=== PATIENT | female | born 1925 | race Caucasian/White ===

== ENCOUNTER 2016-11-09 00:02 | Emergency (ER) | payer OTHER ==
[2016-11-09] MEDS ORDERED: ASPIRIN PO STA (00:09)
[2016-11-09 00:17] LABS: MANUAL DIFF NEEDED? NO
[2016-11-09 00:27] LABS: BASO% 0.6 % (0.0-0.8); EOS# 0.25 X1000 (0.0-0.7); EOS% 3.8 % (0.0-10.0); HEMATOCRIT 32.9 % (37.0-47.0); HEMOGLOBIN 11.3 g/dL (12.0-16.0); IMM GRAN# 0.02 X1000 (0.0-0.04); IMM GRAN% 0.3 % (0.0-0.5); LYMPH# 1.52 X1000 (1.2-3.4); LYMPH% 23.3 % (20.5-51.1); MCH 31.8 PG (27-31); MCHC 34.3 g/dL (33-37); MCV 92.7 FL (81-99); MONO# 0.86 X1000 (0.11-0.59); MONO% 13.2 % (1.7-9.3); MPV 10.2 FL (7.4-10.4); NEUT% 58.8 % (42.2-75.2); PLT 204 X1000 (130-400); RBC 3.55 XMIL (4.2-5.4)
--- NOTE | 2016-11-09 00:29 | PROVIDER DOCUMENTATION ---
HPI-Chest Pain - General Source: patient - History of Present Illness-CP Location: reports: substernal Chest Pain Radiation: reports: no radiation Quality of Pain: reports: dull Onset/Duration: 1-3 hours ago Timing: gone now Associated Symptoms: denies: dizziness Nitro Today/Relief: no nitro taken today Aspirin Treatment Today: no aspirin today <Doug Prajapati - Last Filed: 11/09/16 00:44> <Javier Rosa - Last Filed: 11/09/16 03:17> - General Chief Complaint: Chest Pain Stated Complaint: chest pain Time Seen by Provider: 11/09/16 00:35 Allergies/Adverse Reactions: Patient Allergies Allergy/AdvReac Type Severity Reaction Status Date / Time No Known Allergies Allergy Verified 11/09/16 00:08 Home Medications: Home Meds Unobtainable 11/09/16 - History of Present Illness-CP Nature of Presenting Problem: 89 yo F presents to the ER with complaint of 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 Pt denies being lightheaded and dizzy. Pt states the chest pain has subsided and states she just couldn't get enough air. (Doug Prajapati) Review of Systems - Adult - REVIEW OF SYSTEMS - ADULT Constitutional: denies: chills, fever Eyes: reports: no symptoms reported Ears, Nose, Mouth & Throat: reports: no symptoms reported Cardiovascular: reports: chest pain. denies: palpitations Respiratory: denies: cough, shortness of breath Gastrointestinal: denies: abdominal pain, nausea, vomiting Genitourinary: reports: no symptoms reported Musculoskeletal: denies: back pain, neck pain Integumentary: reports: no symptoms reported Neurological: reports: no symptoms reported Psychiatric: reports: no symptoms reported Endocrine: reports: no symptoms reported Hematologic/Lymphatic: reports: no symptoms reported Allergic/Immunologic: reports: no symptoms reported All Other Systems: Reviewed and Negative <Doug Prajapati - Last Filed: 11/09/16 00:44> Past History - Adult - PAST MEDICAL HISTORY-ADULT Review of Records: reports: Old Records Reviewed, Nursing Assessment Review, Medications Reviewed - IMMUNIZATION STATUS Childhood Immunizations: See Nurse Assessment Flu Vaccine: See Nurse Assessment <Doug Prajapati - Last Filed: 11/09/16 00:44> Physical Exam-General - PHYSICAL EXAM-ADULT Initial Vital Signs Reviewed: Yes - CONSTITUTIONAL General Appearance: appears well, alert - EYES Eyes: PERRL/EOMI, pink conjunctivae - HEAD, EARS, NOSE, MOUTH & THROAT HENMT: normocephalic/atraumatic, moist mucous membranes - NECK Neck: non-tender, full range of motion - RESPIRATORY Respiratory: chest non-tender, lungs clear - CARDIOVASCULAR Cardiovascular: normal peripheral pulses, regular rate, rhythm - GASTROINTESTINAL (ABDOMEN) Abdominal Exam: normal bowel sounds, non tender - MUSCULOSKELETAL Extremity: normal range of motion, non-tender <Doug Prajapati - Last Filed: 11/09/16 00:44> Progress - EKG 1 Time of EKG reading by physician:: 00:13 EKG Read and Signed by:: Javier Rosa EKG Interpretation (*Must complete 3 of following elements*): Abnormal Rate: 47 Rhythm: sinus bradycardia [place]: normal QRS: poor R wave progression Prior EKG Comparison: no prior EKG Comments: abnormal EKG - XRAY 1 XRAY Study: Chest Impression: Normal XRAY Interpretation: normal <Doug Prajapati - Last Filed: 11/09/16 00:44> - REASSESSMENT Reassessment #1 Time Reassessed: 03:16 (pain remained symptom free during her ED stay) Status: improving <Javier Rosa - Last Filed: 11/09/16 03:17> - PLAN OF CARE/RESULTS Progress/Plan/Lab Results: Laboratory Tests 11/09/16 11/09/16 11/09/16 00:01 00:01 00:01 WBC RBC Hgb Hct MCV MCH MCHC RDW Std Deviation Plt Count MPV Immature Gran % (Auto) Neut % (Auto) Lymph % (Auto) Forrest % (Auto) Eos % (Auto) Baso % (Auto) Immature Gran # (Auto) Neut # (Auto) Lymph # (Auto) Forrest # (Auto) Eos # (Auto) Baso # (Auto) PT INR APTT (Factor Assay) D-Dimer Sodium 134 L Potassium 4.4 Chloride 100 Carbon Dioxide 26 Anion Gap 8 BUN 23 H Creatinine 0.8 Estimated GFR/1.73 m2 > 60 BUN/Creatinine Ratio 29 Glucose 89 Calculated Osmolality 271 Calcium 8.8 Magnesium 2.3 Total Bilirubin 0.20 AST 25 ALT 14 Alkaline Phosphatase 75 Creatine Kinase 78 Troponin T < 0.010 Zmg-E-Ksajzsnlyky Pept 341 Total Protein 6.8 Albumin 3.8 Globulin 3.0 Albumin/Globulin Ratio 1.0 11/09/16 11/09/16 00:01 00:01 WBC 6.51 RBC 3.55 L Hgb 11.3 L Hct 32.9 L MCV 92.7 MCH 31.8 H MCHC 34.3 RDW Std Deviation 12.8 Plt Count 204 MPV 10.2 Immature Gran % (Auto) 0.3 Neut % (Auto) 58.8 Lymph % (Auto) 23.3 Forrest % (Auto) 13.2 H Eos % (Auto) 3.8 Baso % (Auto) 0.6 Immature Gran # (Auto) 0.02 Neut # (Auto) 3.82 Lymph # (Auto) 1.52 Forrest # (Auto) 0.86 H Eos # (Auto) 0.25 Baso # (Auto) 0.04 PT 13.5 INR 1.00 APTT (Factor Assay) 27.3 D-Dimer 0.26 Sodium Potassium Chloride Carbon Dioxide Anion Gap BUN Creatinine Estimated GFR/1.73 m2 BUN/Creatinine Ratio Glucose Calculated Osmolality Calcium Magnesium Total Bilirubin AST ALT Alkaline Phosphatase Creatine Kinase Troponin T Ecz-G-Buecyijytfi Pept Total Protein Albumin Globulin Albumin/Globulin Ratio Orders Category Date Time Status Cardiac Monitoring DIRECTED Care 11/09/16 00:09 Active Oxygen Therapy- ED Nursing DIRECTED Care 11/09/16 00:09 Active Saline Loc NOW Care 11/09/16 00:09 Active CHEST-2 VIEWS [RAD] Stat Exams 11/09/16 00:09 Taken CBC WITH ELECTRONIC DIFF [HEME] Stat Lab 11/09/16 00:01 Completed CK PROFILE [SP CHEM] Stat Lab 11/09/16 00:01 Completed COMPREHENSIVE METABOLIC PANEL [CHEM] Stat Lab 11/09/16 00:01 [address] D-DIMER PL [COAG] Stat Lab 11/09/16 00:01 Completed MAGNESIUM [CHEM] Stat Lab 11/09/16 00:01 Completed PRO B-NATRIURETIC PEPTIDE Stat Lab 11/09/16 00:01 Completed PR[address]IME WITH INR PL [COAG] Stat Lab 11/09/16 00:[address] [COAG] Stat Lab 11/09/16 00:01 Completed TROPONIN T Stat Lab 11/09/16 00:01 Completed Aspirin Med 11/09/16 00:09 Discontinued 325 mg PO STAT STA EKG [EKG] Stat Ther 11/09/16 00:09 Ordered Vital Signs Temp Pulse Resp BP Pulse Ox 11/09/16 01:07 98.2 F 46 L 18 154/58 100 11/09/16 00:03 98.2 F 52 L 18 160/66 94 L No Known Allergies Allergy (Verified 11/09/16 00:08) Home Meds Unobtainable 11/09/16 Laboratory 11/09/16 11/09/16 11/09/16 00:01 00:01 00:01 WBC 6.51 RBC 3.55 L Hgb 11.3 L Hct 32.9 L MCV 92.7 MCH 31.8 H MCHC 34.3 RDW Std Deviation 12.8 Plt Count 204 MPV 10.2 Immature Gran % (Auto) 0.3 Neut % (Auto) 58.8 Lymph % (Auto) 23.3 Forrest % (Auto) 13.2 H Eos % (Auto) 3.8 Baso % (Auto) 0.6 Immature Gran # (Auto) 0.02 Neut # (Auto) 3.82 Lymph # (Auto) 1.52 Forrest # (Auto) 0.86 H Eos # (Auto) 0.25 Baso # (Auto) 0.04 PT 13.5 INR 1.00 APTT (Factor Assay) 27.3 D-Dimer 0.26 Sodium Potassium Chloride Carbon Dioxide Anion Gap BUN Creatinine Estimated GFR/1.73 m2 BUN/Creatinine Ratio Glucose Calculated Osmolality Calcium Magnesium Total Bilirubin AST ALT Alkaline Phosphatase Creatine Kinase Troponin T Enp-L-Znupufgzpoa Pept 341 Total Protein Albumin Globulin Albumin/Globulin Ratio 11/09/16 11/09/16 00:01 00:01 WBC RBC Hgb Hct MCV MCH MCHC RDW Std Deviation Plt Count MPV Immature Gran % (Auto) Neut % (Auto) Lymph % (Auto) Forrest % (Auto) Eos % (Auto) Baso % (Auto) Immature Gran # (Auto) Neut # (Auto) Lymph # (Auto) Forrest # (Auto) Eos # (Auto) Baso # (Auto) PT INR APTT (Factor Assay) D-Dimer Sodium 134 L Potassium 4.4 Chloride 100 Carbon Dioxide 26 Anion Gap 8 BUN 23 H Creatinine 0.8 Estimated GFR/1.73 m2 > 60 BUN/Creatinine Ratio 29 Glucose 89 Calculated Osmolality 271 Calcium 8.8 Magnesium 2.3 Total Bilirubin 0.20 AST 25 ALT 14 Alkaline Phosphatase 75 Creatine Kinase 78 Troponin T < 0.010 Ynq-Y-Iotwzcelknx Pept Total Protein 6.8 Albumin 3.8 Globulin 3.0 Albumin/Globulin Ratio 1.0 (Javier Rosa) Departure <Doug Prajapati - Last Filed: 11/09/16 00:44> - Departure Time of Disposition Order: 03:17 Certified Medical Emergency: Emergent <Javier Rosa - Last Filed: 11/09/16 03:17> - Departure DIAGNOSIS: Chest pain, non-cardiac Disposition: HOME 01 Condition: Stable Additional Instructions: ED Follow Up Instructions: You have been treated by a care provider in the Emergency Department. These instructions are being provided to you so you can have an understanding of how to care for yourself upon discharge. Upon discharge from the Emergency Department, you are responsible for making arrangements for follow-up care by a physician of your choice. Take all prescribed medications as directed. Return to the Emergency Department immediately for any new or worsening symptoms. You may call the Physician Referral phone number at [phone] to obtain a list of Physicians who are taking new patients. Referrals: Maico Newton MD [STAFF PHYSICIAN] - Attestation - Scribe Verification/Attestation Scribe:: Doug Prajapati Acting as Scribe for:: Javier Rosa Scribe documention review:: This chart was documented by a scribe and accurately reflects the service the provider performed and the decisions made by the provider. <Doug Prajapati - Last Filed: 11/09/16 00:44> Physician Attestation
[2016-11-09 00:45] LABS: PROTIME 13.5 Seconds (12.1-15.5)
[2016-11-09 00:46] LABS: PTT PL 27.3 Seconds (22.6-43.9)
[2016-11-09 02:46] LABS: AGAP 8; ALBUMIN 3.8 g/dL (3.5-5.0); ALKALINE PHOSPHATASE 75 U/L (32-104); BUN 23 mg/dL (8-22); CALCIUM 8.8 mg/dL (8.8-10.2); CHLORIDE 100 mmol/L (98-107); CK PROFILE 78 U/L (24-173); COSMO 271; GOT 25 U/L (10-30); GPT 14 U/L (10-36); MAGNESIUM 2.3 mg/dL (1.5-2.7); POTASSIUM 4.4 mmol/L (3.5-5.1); SODIUM 134 mmol/L (136-145); TCO2 26 mmol/L (25-35); TOTAL PROTEIN 6.8 g/dL (6.3-8.3)
[2016-11-09 03:37] VITALS: BP 137/85
--- NOTE | 2016-11-09 05:27 | EKG Report ---
Test Performed on : 11/09/2016 00:13:38 AM Test Reason : ER11 Blood Pressure : / mmHG Vent. Rate : 047 BPM Atrial Rate : 047 BPM P-R Int : 158 ms QRS Dur : 080 ms QT Int : 458 ms P-R-T Axes : 025 -06 029 degrees QTc Int : 405 ms Sinus bradycardia. Anterior infarct , age undetermined Abnormal ECG No previous ECGs available Unconfirmed Result
--- NOTE | 2016-11-09 11:40 | Diag Imaging Result Document ---
PROCEDURE NAME: CHEST-2 VIEWS - 11/09/2016 PA AND LATERAL RADIOGRAPHS OF THE CHEST: COMPARISON: None available. FINDINGS: The lungs are, perhaps, slightly hyperinflated suggesting possible mild COPD. There is blunting of the costophrenic angles suggesting chronic pleural scarring or, perhaps, trace effusions. The lungs are grossly clear otherwise. Cardiac silhouette and central vasculature are grossly unremarkable. IMPRESSION: Minimal blunting of the costophrenic angles as described and possible mild COPD. No definite acute pathology, otherwise.
== END 2016-11-09 03:36 | disposition home or self-care (01) ==
LOC: P.ED 00:02
DX: R07.89 Other chest pain (principal); R94.31 Abnormal electrocardiogram [ECG] [EKG]
CPT/HCPCS: 71020; 80053; 82550; 83735; 83880; 84484; 85025; 85379; 85610; 85730; 93005; 99284